=== PATIENT | female | born 1950 | race Caucasian/White ===

== ENCOUNTER 2019-03-12 11:17 | Emergency (ER) | payer MEDICARE, OTHER ==
[~2019-03-12] VITALS: Ht 165.1 cm; Wt 59.0 kg
[2019-03-12 11:28] VITALS: Ht 165.1 cm; Wt 59.0 kg
[2019-03-12] MEDS ORDERED: SOD CHLORIDE 0.9% 1,000 ML IV STA (12:34)
[2019-03-12] MEDS ORDERED: LEVETIRACETAM 1000 MG (PMX) 100 ML IVPB STA (12:34)
[2019-03-12] MEDS ORDERED: CEFTRIAXONE 1 GM/50 ML (PMX) 50 ML IVPB ONE (14:00)
[2019-03-12] MEDS ORDERED: morphine 10 MG INJ IV ONE (14:30)
[2019-03-12] MEDS ORDERED: CIPR500T4 PO (16:05)
[2019-03-12 16:15] VITALS: BP 133/82; PULSE 88; RESP 18
--- NOTE | 2019-03-13 11:56 | RADRPT ---
Vent Rate: 88 bpm RR Interval: 0 msec AR Interval: 162 msec QRS Duration: 82 msec QT Interval: 396 msec QTC Interval: 479 msec P-R-T [place]: 43 - 46 - 16 degrees Normal sinus rhythm Nonspecific T wave abnormality Prolonged QT Abnormal ECG Electronically Signed By: *[facility]
--- NOTE | 2019-03-17 15:11 | ERD ---
ER Documentation Chief Complaint Chief Complaint PT BIB RA from [facility] for c/o 2 seizures this morning, hx of seizures on meds HPI 68-year-old female with a history of advanced dementia sent from her [facility] facility for having 2 seizures this morning. The patient does have a history of seizures and is on Keppra for this. No other new symptoms were noted by staff per EMS. Patient is nonverbal at baseline and is unable to provide any history or answer any questions. ROS Unable to obtain due to advanced dementia and nonverbal status Medications Home Meds Active Scripts Ciprofloxacin Hcl* (Ciprofloxacin Hcl*) 500 Mg Tablet, 500 MG PO BID for 7 Days, TAB Prov:ANDRAE GARCIA MD 03/12/19 Allergies Allergies: Coded Allergies: No Known Allergy (Unverified , 03/12/19) PMhx/Soc Medical and Surgical Hx: Unable to obtain History of Surgery: No Hx Neurological Disorder: Yes (parkinson's Disease, encephalopathy, seizures, dementia) Hx Respiratory Disorders: No Hx Cardiac Disorders: No Hx Psychiatric Problems: Yes (depression, anxiety, mental/behavioral disorder, speech distubances) Hx Alcohol Use: No Hx Substance Use: No Hx Tobacco Use: No Smoking Status: Never smoker FmHx Unable to obtain Physical Exam Physical Exam Const: No acute distress, laying comfortably in bed, nontoxic Head: Atraumatic Eyes: Normal Conjunctiva, PERRLA ENT: Dry mucous membranes. Normal External Ears, Nose and Mouth. No evidence of intraoral injury or bleeding but difficult to examine as patient does not follow directions Neck: supple Resp: Clear to auscultation bilaterally Cardio: Regular rate and rhythm, no murmurs Abd: Soft, non tender, non distended. Normal bowel sounds Skin: No petechiae or rashes Back: No midline or flank tenderness Ext: No cyanosis, or edema Neur: Awake and alert, not answering questions, no obvious facial asymmetry, moving all extremities spontaneously Psych: Flat affect, calm Results 24 hrs Laboratory Tests Test 03/12/19 12:42 03/12/19 12:55 White Blood Count 9.0 10^3/ul Red Blood Count 4.47 10^6/ul Hemoglobin 12.9 g/dl Hematocrit 38.5 % Mean Corpuscular Volume 86.1 fl Mean Corpuscular Hemoglobin 28.9 pg Mean Corpuscular Hemoglobin Concent 33.5 g/dl Red Cell Distribution Width 13.9 % Platelet Count 304 10^3/UL Mean Platelet Volume 10.5 fl Immature Granulocytes % 0.700 % Neutrophils % 65.1 % Lymphocytes % 28.7 % Monocytes % 4.9 % Eosinophils % 0.2 % Basophils % 0.4 % Nucleated Red Blood Cells % 0.0 /100WBC Immature Granulocytes # 0.060 10^3/ul Neutrophils # 5.9 10^3/ul Lymphocytes # 2.6 10^3/ul Monocytes # 0.4 10^3/ul Eosinophils # 0.0 10^3/ul Basophils # 0.0 10^3/ul Nucleated Red Blood Cells # 0.0 10^3/ul Sodium Level 141 mmol/L Potassium Level 4.1 mmol/L Chloride Level 108 mmol/L Carbon Dioxide Level 26 mmol/L Anion Gap 7 Blood Urea Nitrogen 17 mg/dl Creatinine 0.65 mg/dl Est Glomerular Filtrat Rate mL/min > 60 mL/min Glucose Level 126 mg/dl Calcium Level 9.6 mg/dl Total Bilirubin 0.4 mg/dl Direct Bilirubin 0.00 mg/dl Indirect Bilirubin 0.4 mg/dl Aspartate Amino Transf (AST/SGOT) 24 IU/L Alanine Aminotransferase (ALT/SGPT) 25 IU/L Alkaline Phosphatase 94 IU/L Troponin I < 0.012 ng/ml Total Protein 7.6 g/dl Albumin 4.2 g/dl Globulin 3.40 g/dl Albumin/Globulin Ratio 1.23 Urine Color YELLOW Urine Clarity TURBID Urine pH 8.0 Urine Specific Walker 1.019 Urine Ketones NEGATIVE mg/dL Urine Nitrite NEGATIVE mg/dL Urine Bilirubin NEGATIVE mg/dL Urine Urobilinogen NEGATIVE mg/dL Urine Leukocyte Esterase TRACE Valerie/ul Urine Microscopic RBC 3 /HPF Urine Microscopic WBC 17 /HPF Urine Amorphous Crystals FEW /HPF Urine Mucus FEW /HPF Urine Hemoglobin NEGATIVE mg/dL Urine Glucose NEGATIVE mg/dL Urine Total Protein NEGATIVE mg/dl Current Medications Medications Dose Sig/Cliff Start Time Status Last (Trade) Ordered Route PRN Stop Time Admin Dose Reason Admin Sodium 1,000 ml @ Q1H STAT 03/12/19 DC 03/12/19 Chloride 1,000 mls/hr IV 12:34 13:27 03/12/19 13:33 100 ml @ ONCE STAT 03/12/19 DC 03/12/19 Levetiracetam 400 mls/hr IVPB 12:34 13:27 03/12/19 12:48 Ceftriaxone 50 ml @ ONCE ONCE 03/12/19 DC 03/12/19 Sodium 100 mls/hr IVPB 14:00 14:01 03/12/19 14:29 Morphine 8 mg ONCE ONCE 03/12/19 DC Sulfate IV 14:30 (morphine) 03/12/19 14:30 Procedures/MDM EMERGENT LABS AND DIAGNOSTIC STUDIES: Lab Results above were reviewed and interpreted by me. CBC: no anemia or evidence of infection CMP: No evidence of clinically significant electrolyte abnormality, acidosis, renal failure, hypoglycemia, liver disease, or biliary obstruction Troponin within normal limits, not indicative of cardiac ischemia UA: evidence of infection 12-lead EKG was interpreted by Brendan Garcia MD: Normal Sinus Rhythm Normal axis Normal intervals No acute ST or T wave changes suggestive of acute ischemia or STEMI. Radiology Results as interpreted by Radiology below were reviewed by SMane Garcia MD: CT head shows no acute abnormalities Chest x-ray shows no acute abnormalities Initial Nursing notes reviewed. Previous Medical Records requested via the Electronic Health Record. EMERGENCY DEPARTMENT COURSE / MEDICAL DECISION MAKING: Patient is presenting after having seizures this morning. She was given IV Keppra here. Labs did not show any significant abnormalities. No evidence of acute intracranial hemorrhage or acute stroke on imaging. Presentation is not consistent with sepsis, however patient does have a UTI. She was given antibiotics for this. She did not have any further seizures during her time in the ER. Her son later arrived to bedside and everything was explained to him. He is happy with the plan to discharge her [facility] to her [facility] with [facility]. He did request the patient be treated for scabies, however I thoroughly examined the patient's skin and she has no signs of a rash. I do not think treatment for scabies is indicated at this time and I explained this to the son. He is just concerned that she occasionally itches herself and feels her symptoms are similar to when she had scabies in the past. I again explained to him that treatment was not indicated at this time, but she can be reevaluated by her physician at the [facility] facility if she has any worsening symptoms. Patient's blood pressure was elevated (>120/80) but appears stable without evidence of hypertensive emergency or urgency. Departure Diagnosis: Primary Impression: UTI (urinary tract infection) Urinary tract infection type: acute cystitis Hematuria presence: without hematuria Qualified Codes: N30.00 - Acute cystitis without hematuria Additional Impressions: Breakthrough seizure Dehydration Condition: Stable Patient Instructions: Understanding Urinary Tract Infections (UTIs), Seizure, Recurrent [Adult] ANDRAE GARCIA MD March 17, 2019 15:11
== END 2019-03-12 16:18 | disposition home or self-care (01) ==
LOC: E/R 11:17
DX: N30.00 Acute cystitis without hematuria (principal); G20 Parkinson's disease; E86.0 Dehydration; G40.909 Epilepsy, unspecified, not intractable, without status epilepticus; R40.2142 Coma scale, eyes open, spontaneous, at arrival to emergency department; R40.2352 Coma scale, best motor response, localizes pain, at arrival to emergency department; R40.2242 Coma scale, best verbal response, confused conversation, at arrival to emergency department
CPT/HCPCS: 36415; 70450; 71045; 80053; 81001; 84484; 85025; 93005; 96365; 96367; 99285; J0696; J1953; J7030